=== PATIENT | male | born 1970 | race Caucasian/White ===

== ENCOUNTER → 2019-06-21 | Outpatient (CLI) | payer BC ==
[~2019-06-21] MED LIST: AZIT-21 PO; BENZ100C18 PO; CIPR-17 PO; CIPR-225 PO; CPR500T PO; CYCL10TA45 PO; FAMO20TA17 PO; HSCO125 SL; HYDR-757 PO; LOPE-134 PO; METR500T PO; NAPR550T PO; OMEP20CA12 PO; ONDAN4ODT PO; OXYC-12 PO; PANT40TA2 PO; PANT40TA3 PO; PNT40TEC PO; PRED10TA PO
--- NOTE | 2019-06-21 15:27 | Diagnostic Imaging Report ---
PROCEDURE: MRI lumbar spine. TECHNIQUE: Multiplanar, multisequence MRI of the lumbar spine was performed without contrast. INDICATION: Low back pain. Bilateral hip pain. COMPARISON: MRI lumbar spine on 03/16/2015. FINDINGS: Five lumbar type vertebral bodies are visualized with the last well-formed disc space designated L5-S1. No acute fracture or dislocation is seen in the lumbar spine. There is straightening of the lumbar spine. Vertebral heights and disc spaces are well-maintained. The bone marrow signal is normal. A hemangioma is seen in the L4 vertebral body. 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 The conus terminates at the L1-L2 level. No masses are seen associated with the conus or nerve roots of the cauda equina. No epidural collections are identified. Mild degenerative changes are seen in the lumbar spine with disc bulges, facet hypertrophy, and buckling of the ligamentum flavum. T12-L1: No significant spinal canal or foraminal stenosis. L1-L2: No significant spinal canal or foraminal stenosis. L2-L3: Facet hypertrophy and buckling of the ligamentum flavum results in mild spinal canal narrowing and no significant foraminal narrowing. L3-L4: Broad-based disc bulge, facet hypertrophy, and buckling of the ligamentum flavum results in mild spinal canal narrowing and mild bilateral foraminal narrowing. L4-L5: Broad-based disc bulge, facet hypertrophy, and buckling of the ligamentum flavum results in no significant spinal canal narrowing and mild bilateral foraminal narrowing. L5-S1: Broad-based disc bulge with central disc protrusion, facet hypertrophy, and buckling of results in no significant spinal canal narrowing and moderate right and no left foraminal stenosis. Paravertebral soft tissues are unremarkable. IMPRESSION: 1. No acute fracture or dislocation in the lumbar spine. 2. Mild degenerative changes in the lumbar spine, greatest at L5-S1. There is generalized narrowing of the spinal canal, likely congenital. Dictated by: Dictated on workstation # [id number]
== END ==
LOC: RAD 14:12
PROVIDERS: ATTEND Nurse Practitioner Community Health
DX: M48.061 Spinal stenosis, lumbar region without neurogenic claudication (principal); M47.817 Spondylosis without myelopathy or radiculopathy, lumbosacral region
CPT/HCPCS: 72148

== ENCOUNTER 2020-10-11 18:34 | Emergency (ER) | payer BC ==
[~2020-10-11] VITALS: Ht 180.3 cm; Wt 113.3 kg
[~2020-10-11 18:34] MED LIST changes: -PANT40TA3 PO; +PANT40TA52 PO
[2020-10-11 18:45] VITALS: BP 163/107
[2020-10-11] MEDS ORDERED: ORPHENADRINE 60 MG/2 ML (NORFLEX) AMP (ED ONLY) IM ONE (19:15)
[2020-10-11] MEDS ORDERED: KETOROLAC 60 MG/2 ML VIAL IM ONE (19:15)
--- NOTE | 2020-10-11 19:17 | ED Back Pain ---
General Chief Complaint: Back Problems Stated Complaint: LOWER BACK PAIN/FATIGUE Nursing Triage Note: Pt reports chronic back pain for ten years. Pt reports pain has worsened over the last month. Pt reports needing surgery. Pt reports having an epidural a month ago and a toradol shot yesterday. Nursing Sepsis Screen: No Definite Risk Source of Information: Patient Exam Limitations: No Limitations History of Present Illness Date Seen by Provider: Oct 11, 2020 Time Seen by Provider: 18:57 Initial Comments Patient presents ER by private conveyance with chief complaint he has been having back pain off and on for the past 10 years. He has a herniated disc has had MRIs for it. No recent trauma. No weakness or numbness. No falls or motor vehicle collisions. 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 2 days ago he went to the doctor and had a shot of Kenalog and Tor adol which did not help. Late August he had Dr. Rodriguez do a epidural injection with steroids which she says usually lasts for a year or 2 but this time it did not help. He says he felt a popping sensation when he was rolling out of tarp today. He does have a back brace and uses it. He is also using topical creams heat and ice. He has an appointment with a surgeon next week at [facility] to have his back operated on which he has been putting off for many years. He is on nabumetone. No loss of control of bowel and/or bladder. No saddle anesthesia. Allergies and Home Medications Allergies Coded Allergies: Penicillins (Verified Allergy, Severe, ANAPHYLAXIS, 10/07/16) codeine (Verified Adverse Reaction, Mild, NAUSEA, 10/07/16) Home Medications Ciprofloxacin HCl 500 Mg Tablet, 500 MG PO BID Prescribed by: JE GUY on 10/08/16 1444 Cyclobenzaprine HCl 10 Mg Tablet, 10 MG PO Q8H PRN for SPASMS Prescribed by: CHASITY MILLAN on 10/11/201918 Loperamide HCl 2 Mg Tablet, 2 MG PO BID PRN for DIARRHEA, (Reported) Pantoprazole Sodium 40 Mg Tablet.dr, 40 MG PO DAILY, (Reported) Prednisone 20 Mg Tab, 60 MG PO DAILY 3 tabs for 3 days then 2 tabs for 3 days then 1 tab for 3 days. Prescribed by: CHASITY MILLAN on 10/11/201918 Patient Home Medication List Home Medication List Reviewed: Yes Review of Systems Constitutional: No chills, No malaise EENTM: No ear discharge, No ear pain Respiratory: No cough, No short of breath Cardiovascular: No chest pain, No Hx of Intervention Gastrointestinal: No abdominal pain, No constipation, No diarrhea, No nausea, No vomiting Genitourinary: No discharge, No dysuria, No hematuria Musculoskeletal: No back pain, No joint pain All Other Systems Reviewed Negative Unless Noted: Yes Past Cbffjcv-Aazbfk-Pjffyb Hx Patient Social History Alcohol Use: Past History Recreational Drug Use: No Smoking Status: Current Everyday Smoker Type Used: Cigarettes Former Smoker, Quit: Oct 02, 2013 2nd Hand Smoke Exposure: No Recent Foreign Travel: No Contact w/Someone Who Travel: No Recent Infectious Disease Expo: No Recent Hopitalizations: No Immunizations Up To Date Tetanus Booster (TDap): More than 5yrs Seasonal Allergies Seasonal Allergies: No Past Medical History Surgeries: Yes (HERNIA, RIGHT WRIST SURGERY) Respiratory: Yes (COPD) COPD Cardiac: No Neurological: No Reproductive Disorders: No Sexually Transmitted Disease: No HIV/AIDS: No Gastrointestinal: Yes (EPIGASTRIC, BLACK TARRY STOOLS) Abdominal Hernia, Diverticulosis, Chronic Diarrhea, Ulcer Musculoskeletal: Yes (ARTHRITIS) Arthritis Endocrine: No Loss of Vision: Denies Hearing Impairment: Denies Cancer: No Psychosocial: No Integumentary: No Blood Disorders: No Adverse Reaction/Blood Tranf: No (N/A) Family Medical History Alcoholism 19 FATHER Cardiovascular disease 19 FATHER (chf) Coronary thrombosis 19 MOTHER Respiratory disorder 19 FATHER (emphysema ) Physical Exam Vital Signs Vital Signs - First Documented 10/11/20 18:45 Temp 37.0 Pulse 90 Resp 18 B/P (MAP) 163/107 (125) Pulse Ox 96 O2 Delivery Room Air Capillary Refill : Less Than 3 Seconds Height, Weight, BMI Height: 6'0.00" Weight: 256lbs. 7.0oz. [id number]; 34.00 BMI Method:Stated General Appearance: WD/WN, Mild Distress HEENT: PERRL/EOMI, Pharynx Normal, Moist Mucous Membranes Neck: Full Range of Motion, Normal Inspection Cardiovascular: Regular Rate, Rhythm, No Edema, Normal Peripheral Pulses Respiratory: Lungs Clear, Normal Breath Sounds, No Accessory Muscle Use, No Respiratory Distress Peripheral Pulses: 2+ Radial Pulses (R), 2+ Radial Pulses (L) Extremity: Normal Capillary Refill, Normal Inspection, Normal Range of Motion, No Pedal Edema Neurologic/Psychiatric: Alert, Oriented x3, No Motor/Sensory Deficits, Normal Mood/Affect Progress/Results/Core Measures Results/Orders My Orders Orders - CHASITY MILLAN Ketorolac Injection (Toradol Injection) (10/11/20 19:15) Orphenadrine Inj (Ed Only) (Norflex Inje (10/11/20 19:15) Vital Signs/I&O 10/11/20 18:45 Temp 37.0 Pulse 90 Resp 18 B/P (MAP) 163/107 (125) Pulse Ox 96 O2 Delivery Room Air Blood Pressure Mean: 125 Progress Progress Note : Time: 19:13 Progress Note Plan to put him off for a week encourage him to use his back brace, topicals Tylenol and NSAIDs. We will give him a shot of Toradol and Norflex tonight. We will put him out on cyclobenzaprine and encouraged him to make his follow-up appointment with the surgeon. Departure Impression Primary Impression: Herniated intervertebral disc of lumbar spine Additional Impression: Lumbago with sciatica Qualified Codes: M54.42 - Lumbago with sciatica, left side; M54.41 - Lumbago with sciatica, right side Disposition: 01 HOME, SELF-CARE Condition: Stable Departure-Patient Inst. Decision time for Depature: 19:14 Referrals: NO,LOCAL PHYSICIAN (PCP) Primary Care Physician BROOKE HOGAN (Family) Primary Care Physician Patient Instructions: Back Stretches on Floor, Herniated Disc Exercises, Herniated Disc (DC) Add. Discharge Instructions: Drink plenty of fluids. Dehydration makes back pain worse. Tylenol and your other medications as prescribed. Continue to use topical creams such as icy hot, Biofreeze etc. Heating pads can be helpful for the pain. Wear the back brace on the days that it helps. Cyclobenzaprine can be taken every 8 hours as necessary for muscle spasms in your back. It will cause drowsiness. Take the next week off and no heavy lifting or bending. Stay active and review the exercises in the handout. Return to the ER for worsening symptoms. Keep your follow-up appointment with the surgeon. Prednisone 3 tablets a day for 3 days. Then take prednisone 2 tablets a day for 3 days. Finally take 1 tablet of prednisone a day for 3 days. You may call and set up a consultation appointment with [facility] therapy to see if they can help manage your back pain. . All discharge instructions reviewed with patient and/or family. Voiced understanding. Scripts Prednisone (Prednisone) 20 Mg Tab 60 MG PO DAILY for 9 Days, #18 TAB 0 Refills 3 tabs for 3 days then 2 tabs for 3 days then 1 tab for 3 days. Prov: CHASITY MILLAN 10/11/20 Cyclobenzaprine HCl (Cyclobenzaprine HCl) 10 Mg Tablet 10 MG PO Q8H PRN for SPASMS, #20 TAB 0 Refills Prov: CHASITY MILLAN 10/11/20 Work/School Note: Work Release Form Date Seen in the Emergency Department: Oct 11, 2020 Return to Work: Oct 18, 2020 Restrictions: No Restrictions CHASITY MILLAN Oct 11, 2020 19:17
[2020-10-11] MEDS ORDERED: PRD20T PO (19:19)
[2020-10-11] MEDS ORDERED: CYCL10TA9 PO (19:19)
== END 2020-10-11 19:40 | disposition home or self-care (01) ==
LOC: EDUNIT# 18:34 → ER 18:35
DX: M51.26 Other intervertebral disc displacement, lumbar region (principal); M54.42 Lumbago with sciatica, left side; M54.41 Lumbago with sciatica, right side; J44.9 Chronic obstructive pulmonary disease, unspecified; F17.210 Nicotine dependence, cigarettes, uncomplicated; Z88.0 Allergy status to penicillin; Z88.5 Allergy status to narcotic agent; Z82.49 Family history of ischemic heart disease and other diseases of the circulatory system; Z79.52 Long term (current) use of systemic steroids
CPT/HCPCS: 99284

== ENCOUNTER 2023-03-28 19:04 | Emergency (ER) | payer BC, OTHER ==
[~2023-03-28] VITALS: Ht 180.3 cm; Wt 113.3 kg
[~2023-03-28 19:04] MED LIST changes: +CYCL10TA25 PO; +PRD20T PO
--- NOTE | 2023-03-28 19:29 | ED EENT ---
History of Present Illness General Chief Complaint: Dental Problems/Pain Stated Complaint: DENTAL PAIN/SWELLING Nursing Triage Note: left lower rear dental pain since 03/24/23 Source: patient History of Present Illness Date Seen by Provider: March 28, 2023 Time Seen by Provider: 19:18 Initial Comments PT ARRIVES VIA POV FROM HOME WITH /S.O. C/O INFECTED TOOTH--PAIN SINCE FRIDAY PT STATES THIS TOOTH IS CRACKED AND ROTTEN. 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 PT HAS NOT SEEN A DENTIST RECENTLY HE DOES GO TO A DENTIST IN [place], [place]--HAD 7 TEETH REMOVED LAST YEAR. HAS NOT FOLLOWED UP SINCE THEN. PT DOES NOT TAKE ANY MEDICATIONS STATES HE HAS COPD AND DIVERTICULITIS. PCP: DR. LEMUS AT [facility] Allergies and Home Medications Allergies Coded Allergies: Penicillins (Verified Allergy, Severe, ANAPHYLAXIS, 10/07/16) codeine (Verified Adverse Reaction, Mild, NAUSEA, 10/07/16) Patient Home Medication List Home Medication List Reviewed: Yes Clindamycin HCl (Clindamycin HCl) 300 Mg Capsule, 300 MG PO QID Prescribed by: IVAN SIEGEL on 03/28/232058 Ketorolac Tromethamine (Ketorolac Tromethamine) 10 Mg Tablet, 10 MG PO Q6H Prescribed by: IVAN SIEGEL on 03/28/232058 L. Acidophilus/Pectin, [place] (Acidophilus Capsule) 7.5 Mg (30 Million Cell)-100 Mg Capsule, 2 EACH PO QID Prescribed by: IVAN SIEGEL on 03/28/232058 Lidocaine HCl (Lidocaine HCl Viscous) 2 % Solution, 1-2 ML MM [id number] Prescribed by: IVAN SIEGEL on 03/28/232058 Discontinued Medications Ciprofloxacin HCl (Cipro) 500 Mg Tablet, 500 MG PO BID Discontinued Reason: No Longer Taking Prescribed by: JE GUY on 10/08/16 1444 Last Action: Discontinued Cyclobenzaprine HCl (Cyclobenzaprine HCl) 10 Mg Tablet, 10 MG PO Q8H PRN for SPASMS Discontinued Reason: No Longer Taking Prescribed by: CHASITY MILLAN on 10/11/201918 Last Action: Discontinued Loperamide HCl (Imodium A-D) 2 Mg Tablet, 2 MG PO BID PRN for DIARRHEA, (Reported) Discontinued Reason: No Longer Taking Entered as Reported by: MATT KEITH on 10/08/16832 Last Action: Discontinued Pantoprazole Sodium (Pantoprazole Sodium) 40 Mg Tablet.dr, 40 MG PO DAILY, (Reported) Discontinued Reason: No Longer Taking Entered as Reported by: MATT KEITH on 10/08/16832 Last Action: Discontinued Prednisone (Prednisone) 20 Mg Tab, 60 MG PO DAILY Discontinued Reason: No Longer Taking Prescribed by: CHASITY MILLAN on 10/11/201918 Last Action: Discontinued Review of Systems Review of Systems Constitutional: see HPI, chills, fever Eyes: No Symptoms Reported Ears: No Symptoms Reported Nose: no symptoms reported Mouth: see HPI Throat: no symptoms reported Respiratory: no symptoms reported Cardiovascular: no symptoms reported Neurological: No Symptoms Reported Past Kdeguri-Idifvf-Ruyfot Hx Patient Social History Tobacco Use?: Yes Tobacco type used: Cigarettes Smoking Status: Current Everyday Smoker Substance use?: No Alcohol Use?: No Pt feels they are or have been: No Immunizations Up To Date Tetanus Booster (TDap): More than 5yrs First/Initial COVID19 Vaccinat: x3 Seasonal Allergies Seasonal Allergies: No Past Medical History Surgery/Hospitalization HX: copd, diverticulitis wrist, hernia, vasectomy, dental extraction Surgeries: Yes (HERNIA, RIGHT WRIST SURGERY) Abdominal, Orthopedic, Vasectomy Respiratory: Yes (COPD) COPD Cardiac: No Neurological: No Reproductive Disorders: No Sexually Transmitted Disease: No HIV/AIDS: No Gastrointestinal: Yes (EPIGASTRIC, BLACK TARRY STOOLS) Abdominal Hernia, Diverticulosis, Chronic Diarrhea, Ulcer Musculoskeletal: Yes (ARTHRITIS) Arthritis Endocrine: No HEENT: Yes (POOR DENTITION) Loss of Vision: Denies Hearing Impairment: Denies Cancer: No Psychosocial: No Integumentary: No Blood Disorders: No Adverse Reaction/Blood Tranf: No (N/A) Family Medical History Alcoholism 19 FATHER Cardiovascular disease 19 FATHER (chf) Coronary thrombosis 19 MOTHER Respiratory disorder 19 FATHER (emphysema ) Physical Exam Vital Signs Vital Signs - First Documented 03/28/23 19:09 Temp 36.6 Pulse 83 Resp 16 B/P (MAP) 142/91 (108) Pulse Ox 97 O2 Delivery Room Air Height, Weight, BMI Height: 6'0.00" Weight: 256lbs. 7.0oz. [id number]; 34.00 BMI Method:Stated General Appearance: WD/WN, no apparent distress, other (REEKS OF CIGARETTES) Eyes: bilateral eye normal inspection Mouth/Throat: other (EXTENSIVE DENTAL DECAY, POOR ORAL HYGIENE. LEFT LOWER MOLAR/ PREMOLAR AREA WITH EXTENSIVE CARIES, AND ADJACENT GUM SWELLING AND ERYTHEMA. MODERATE SWELING TO LEFT MANDIBLE / SUBMANDIBULAR AREA. ) Neck: lymphadenopathy (L) Cardiovascular: regular rate, rhythm Respiratory: normal breath sounds Neurologic/Psychiatric: umbrella tipper II-XII nml as tested, no motor/sensory deficits, alert, oriented x 3, other (SOMEWHAT HOSTILE AND ARGUMENTATIVE.) Skin: normal color, warm/dry, tattoos/piercings (EXTENSIVE TATTOOS) Progress/Results/Core Measures Results/Orders Lab Results Laboratory Tests Test 03/28/23 19:30 Range/Units White Blood Count 9.9 4.3-11.0 10^3/uL Red Blood Count 4.93 4.30-5.52 10^6/uL Hemoglobin 15.6 13.3-17.7 g/dL Hematocrit 45 40-54 % Mean Corpuscular Volume 92 80-99 fL Mean Corpuscular Hemoglobin 32 25-34 pg Mean Corpuscular Hemoglobin Concent 34 32-36 g/dL Red Cell Distribution Width 13.0 10.0-14.5 % Platelet Count 215 130-400 10^3/uL Mean Platelet Volume 11.5 9.0-12.2 fL Immature Granulocyte % (Auto) 0 % Neutrophils (%) (Auto) 51 42-75 % Lymphocytes (%) (Auto) 36 12-44 % Monocytes (%) (Auto) 8 0-12 % Eosinophils (%) (Auto) 5 0-10 % Basophils (%) (Auto) 0 0-10 % Neutrophils # (Auto) 5.0 1.8-7.8 10^3/uL Lymphocytes # (Auto) 3.6 1.0-4.0 10^3/uL Monocytes # (Auto) 0.8 0.0-1.0 10^3/uL Eosinophils # (Auto) 0.5 H 0.0-0.3 10^3/uL Basophils # (Auto) 0.0 0.0-0.1 10^3/uL Immature Granulocyte # (Auto) 0.0 0.0-0.1 10^3/uL Erythrocyte Sedimentation Rate 39 H 0-30 MM/HR Prothrombin Time 12.8 12.2-14.7 SEC INR Comment 0.9 0.8-1.4 Activated Partial Thromboplast Time 29 24-35 SEC Sodium Level 142 135-145 MMOL/L Potassium Level 3.5 L 3.6-5.0 MMOL/L Chloride Level 103 98-107 MMOL/L Carbon Dioxide Level 23 21-32 MMOL/L Anion Gap 16 H 5-14 MMOL/L Blood Urea Nitrogen 10 7-18 MG/DL Creatinine 1.28 0.60-1.30 MG/DL Estimat Glomerular Filtration Rate 68 BUN/Creatinine Ratio 8 Glucose Level 86 70-105 MG/DL Calcium Level 9.4 8.5-10.1 MG/DL Corrected Calcium 9.2 8.5-10.1 MG/DL Total Bilirubin 1.2 H 0.1-1.0 MG/DL Aspartate Amino Transf (AST/SGOT) 19 5-34 U/L Alanine Aminotransferase (ALT/SGPT) 20 0-55 U/L Alkaline Phosphatase 77 40-136 U/L C-Reactive Protein High Sensitivity 1.81 H 0.00-0.50 MG/DL Total Protein 7.1 6.4-8.2 GM/DL Albumin 4.3 3.2-4.5 GM/DL My Orders Orders - IVAN SIEGEL DO Ed Iv/Invasive Line Start (03/28/23 19:21) Ct Maxillofacial Wo (03/28/23 19:21) Cbc With Automated Diff (03/28/23 19:21) Comprehensive Metabolic Panel (03/28/23 19:21) Hs C Reactive Protein (03/28/23 19:21) Protime With Inr (03/28/23 19:21) Partial Thromboplastin Time (03/28/23 19:21) Erythrocyte Sedimentation Rate (03/28/23 19:21) Ed Iv/Invasive Line Start (03/28/23 19:21) Lactated Ringers (Lr 1000 Ml Iv Solution (03/28/23 19:30) Clindamycin 900 Mg/50 Ml Ivpb (Cleocin P (03/28/23 19:30) Ketorolac Injection (Toradol Injection) (03/28/23 19:30) Rx-Clindamycin Capsule (Rx-Cleocin Capsu (03/28/23 21:00) Lidocaine 2% Viscous 15 Ml (Xylocaine Vi (03/28/23 21:00) Medications Given in ED Current Medications Medications Dose Ordered Sig/Chaz Route Start Time Stop Time Status Last Admin Dose Admin Clindamycin Phosphate/Dextrose 50 ml @ 100 mls/hr ONCE ONCE IV 03/28/23 19:30 03/28/23 19:59 DC 03/28/23 19:43 100 MLS/HR Ketorolac Tromethamine 30 mg ONCE ONCE IVP 03/28/23 19:30 03/28/23 19:31 DC 03/28/23 19:43 30 MG Lactated Ringer's 1,000 ml @ 0 mls/hr Q0M ONCE IV 03/28/23 19:30 03/28/23 19:31 DC 03/28/23 19:43 1,000 MLS/HR Lidocaine HCl 5 ml ONCE ONCE MM 03/28/23 21:00 03/28/23 21:01 DC 03/28/23 21:10 5 ML Vital Signs/I&O 03/28/23 03/28/23 19:09 21:12 Temp 36.6 Pulse 83 64 Resp 16 16 B/P (MAP) 142/91 (108) 143/97 Pulse Ox 97 97 O2 Delivery Room Air Room Air Blood Pressure Mean: 108 Progress Progress Note : Progress Note GIVEN: -IV FLUIDS -TORADOL -CLINDAMYCIN LABS UNREMARKABLE, WITH NORMAL WBC. CT SCAN DOES NOT SHOW ANY DRAINABLE ABSCESS. PT IS AFEBRILE, AND VITALS ARE STABLE OFFERED ADMIT FOR IV ANTIBIOTICS AND PT ADAMANTLY REFUSES. DISCUSSED TEST RESULTS, ANTICIPATED COURSE, SYMPTOMATIC TREATMENT, MEDICATIONS, NEED FOR FOLLOW UP WITH DENTIST AND RETURN PRECAUTIONS. Diagnostic Imaging Comments CT MAXILLOFACIALS--PER RADIOLOGIST REPORT AT 2004 COMPARISON: None available. FINDINGS: Moderate intracranial atrophy is partially visualized. No intracranial midline shift or hydrocephalus. The orbits are unremarkable. The parapharyngeal fat is symmetric and well-maintained. The salivary glands are unremarkable. Subcutaneous fat stranding is noted within the submental region, left greater than right, extending up the left aspect of the chin. Thickening of the left platysma. No focal fluid collection. The patient is partially edentulous. No destructive osseous process. No focal fluid collection. Minimal mucosal thickening within scattered ethmoid air cells and the bilateral maxillary sinuses. No air-fluid level within the paranasal sinuses. The lamina papyracea are intact. No temporomandibular joint dislocation. Rightward nasal septal deviation with prominent rightward nasal septal spur. Katya bullosa of the bilateral middle turbinates. No acute facial fracture. Visualized cervical spine is unremarkable. IMPRESSION: Fat stranding within the left face and inferior chin region as described above. This may be on the basis of cellulitis or contusion. No discrete focal fluid collection or osseous destruction. Moderate intracranial atrophy. Reviewed: Reviewed by Me Departure Impression Primary Impression: DENTAL ABSCESS WITH FACIAL CELLULITIS Disposition: HOME, SELF-CARE Condition: Stable Departure-Patient Inst. Decision time for Depature: 20:15 Referrals: JUVE LEMUS DO (PCP/Family) Primary Care Physician Patient Instructions: Tooth Abscess (DC) Add. Discharge Instructions: FOLLOW UP WITH DENTIST NEXT WEEK RETURN TO ER IF SYMPTOMS WORSEN All discharge instructions reviewed with patient and/or family. Voiced understanding. Scripts L. Acidophilus/Pectin, [place] (Acidophilus Capsule) 7.5 Mg (30 Million Cell)-100 Mg Capsule 2 EACH PO QID, #40 CAP Prov: IVAN SIEGEL DO 03/28/23 Clindamycin HCl (Clindamycin HCl) 300 Mg Capsule 300 MG PO QID for 10 Days, #40 CAP Prov: IVAN SIEGEL DO 03/28/23 Ketorolac Tromethamine (Ketorolac Tromethamine) 10 Mg Tablet 10 MG PO Q6H for Pain, #15 TAB Prov: IVAN SIEGEL DO 03/28/23 Lidocaine HCl (Lidocaine HCl Viscous) 2 % Solution 1-2 ML MM [id number], #120 ML Prov: IVAN SIEGEL DO 03/28/23 IVAN SIEGEL DO March 28, 2023 19:29
[2023-03-28] MEDS ORDERED: LACTATED RINGERS 1,000 ML IV ONE (19:30)
[2023-03-28] MEDS ORDERED: KETOROLAC 30 MG/ML VIAL IVP ONE (19:30)
[2023-03-28] MEDS ORDERED: CLINDAMYCIN 900 MG/50 ML IVPB 50 ML IV ONE (19:30)
[2023-03-28 19:37] LABS: BASOPHILS % (AUTO) 0 % (0-10); EOSINOPHILS # (AUTO) 0.5 10^3/uL (0.0-0.3); EOSINOPHILS % (AUTO) 5 % (0-10); HEMATOCRIT 45 % (40-54); HEMOGLOBIN 15.6 g/dL (13.3-17.7); LYMPHOCYTES # (AUTO) 3.6 10^3/uL (1.0-4.0); LYMPHOCYTES % (AUTO) 36 % (12-44); MEAN CORPUSCULAR HEMOGLOBIN 32 pg (25-34); MEAN CORPUSCULAR HGB CONC 34 g/dL (32-36); MEAN CORPUSCULAR VOLUME 92 fL (80-99); MEAN PLATELET VOLUME 11.5 fL (9.0-12.2); MONOCYTES # (AUTO) 0.8 10^3/uL (0.0-1.0); MONOCYTES % (AUTO) 8 % (0-12); NEUTROPHILS % (AUTO) 51 % (42-75); PLATELET COUNT 215 10^3/uL (130-400); WHITE BLOOD COUNT 9.9 10^3/uL (4.3-11.0)
[2023-03-28 19:51] LABS: INR 0.9 (0.8-1.4); PROTHROMBIN TIME PATIENT 12.8 SEC (12.2-14.7)
[2023-03-28 19:55] LABS: ALBUMIN 4.3 GM/DL (3.2-4.5); BILIRUBIN,TOTAL 1.2 MG/DL (0.1-1.0); CALCIUM 9.4 MG/DL (8.5-10.1); CREATININE SERUM 1.28 MG/DL (0.60-1.30); POTASSIUM 3.5 MMOL/L (3.6-5.0); TOTAL PROTEIN 7.1 GM/DL (6.4-8.2)
[2023-03-28 19:56] LABS: ERYTHROCYTE SEDIMENTATION RATE 39 MM/HR (0-30)
--- NOTE | 2023-03-28 20:16 | Diagnostic Imaging Report ---
PROCEDURE: CT maxillofacial without contrast. TECHNIQUE: Multiple contiguous axial images were obtained through the facial bones without the use of intravenous contrast. Auto Exposure Controls were utilized during the CT exam to meet ALARA standards for radiation dose reduction. INDICATION: Facial trauma, pain COMPARISON: None available. FINDINGS: Moderate intracranial atrophy is partially visualized. No intracranial midline shift or hydrocephalus. The orbits are unremarkable. The parapharyngeal fat is symmetric and well-maintained. The salivary glands are unremarkable. Subcutaneous fat stranding is noted within the submental region, left greater than right, extending up the left aspect of the chin. Thickening of the left platysma. No focal fluid collection. The patient is partially edentulous. No destructive osseous process. No focal fluid collection. Minimal mucosal thickening within scattered ethmoid air cells and the bilateral maxillary sinuses. No air-fluid level within the paranasal sinuses. The lamina papyracea are intact. No temporomandibular joint dislocation. Rightward nasal septal deviation with prominent rightward nasal septal spur. Katya bullosa of the bilateral middle turbinates. No acute facial fracture. Visualized cervical spine is unremarkable. IMPRESSION: Fat stranding within the left face and inferior chin region as described above. This may be on the basis of cellulitis or contusion. No discrete focal fluid collection or osseous destruction. Moderate intracranial atrophy. Dictated by: Dictated on workstation # [id number]
[2023-03-28] MEDS ORDERED: LIDO15SO3 MM (20:59)
[2023-03-28] MEDS ORDERED: CLIN-144 PO (20:59)
[2023-03-28] MEDS ORDERED: L. A1CAP11 PO (20:59)
[2023-03-28] MEDS ORDERED: KETO10TA PO (20:59)
[2023-03-28] MEDS ORDERED: LIDOCAINE 2% VISCOUS 15 ML UDC MM ONE (21:00)
[2023-03-28] MEDS ORDERED: RX-CLINDAMYCIN 150 MG (CLEOCIN) CAP PPK#4 PO STA (21:00)
[2023-03-28 21:12] VITALS: BP 143/97
== END 2023-03-28 21:12 | disposition home or self-care (01) ==
LOC: EDUNIT# 19:04 → ER 19:06
DX: K04.7 Periapical abscess without sinus (principal); L03.211 Cellulitis of face; F17.210 Nicotine dependence, cigarettes, uncomplicated; Z28.311 Partially vaccinated for COVID-19; Z88.0 Allergy status to penicillin
CPT/HCPCS: 36415; 70486; 80053; 85025; 85610; 85652; 85730; 86141

== ENCOUNTER 2023-09-14 10:18 | Emergency (ER) | payer OTHER ==
[~2023-09-14] VITALS: Ht 182.8 cm; Wt 108.8 kg
[~2023-09-14 10:18] MED LIST changes: +CLIN-144 PO; +KETO10TA PO; +L. A1CAP11 PO; +LIDO15SO3 MM
[2023-09-14] MEDS ORDERED: COLCHICINE 0.6 MG TABLET PO ONE ×2 (10:45→12:00)
--- NOTE | 2023-09-14 10:58 | Diagnostic Imaging Report ---
INDICATION: Left ankle pain, starting yesterday with pain and swelling. No known injury. TECHNIQUE: Three views of the left ankle CORRELATION STUDY: None FINDINGS: The bony alignment is anatomic. The talar dome is intact. The ankle mortise is maintained. Very small plantar calcaneal spur. There is no acute fracture or dislocation. Soft tissues are unremarkable. IMPRESSION: Negative for acute bony abnormality of the ankle. Dictated by: Dictated on workstation # [id number]
[2023-09-14 11:12] LABS: BASOPHILS # (AUTO) 0.1 10^3/uL (0.0-0.1); BASOPHILS % (AUTO) 0 % (0-10); EOSINOPHILS # (AUTO) 0.6 10^3/uL (0.0-0.3); EOSINOPHILS % (AUTO) 4 % (0-10); HEMATOCRIT 46 % (40-54); HEMOGLOBIN 15.9 g/dL (13.3-17.7); LYMPHOCYTES # (AUTO) 3.1 10^3/uL (1.0-4.0); LYMPHOCYTES % (AUTO) 21 % (12-44); MEAN CORPUSCULAR HEMOGLOBIN 32 pg (25-34); MEAN CORPUSCULAR HGB CONC 35 g/dL (32-36); MEAN CORPUSCULAR VOLUME 93 fL (80-99); MEAN PLATELET VOLUME 11.6 fL (9.0-12.2); MONOCYTES # (AUTO) 0.9 10^3/uL (0.0-1.0); MONOCYTES % (AUTO) 6 % (0-12); NEUTROPHILS # (AUTO) 9.7 10^3/uL (1.8-7.8); NEUTROPHILS % (AUTO) 68 % (42-75); PLATELET COUNT 196 10^3/uL (130-400); WHITE BLOOD COUNT 14.3 10^3/uL (4.3-11.0)
[2023-09-14 11:22] LABS: POTASSIUM 3.9 MMOL/L (3.6-5.0)
[2023-09-14 11:23] LABS: CALCIUM 9.1 MG/DL (8.5-10.1)
[2023-09-14 11:28] LABS: CREATININE SERUM 1.06 MG/DL (0.60-1.30)
--- NOTE | 2023-09-14 11:28 | ED Lower Extremity ---
General Chief Complaint: Lower Extremity Stated Complaint: LEFT ANKLE PAIN Nursing Triage Note: PT AMB TO RM 5 WITH COMPLAINT OF LEFT ANKLE PAIN. STATES STARTED YESTERDAY WITH PAIN AND SWELLING. DENIES INJURY. Source: patient, family Exam Limitations: no limitations History of Present Illness Date Seen by Provider: Sep 14, 2023 Time Seen by Provider: 10:30 Initial Comments This 53-year-old gentleman presents to the emergency room by private vehicle with concerns about 2 days of pain and swelling in the left ankle. He does not recall any injury or strenuous activity. 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 He also gets up and down from the trailer. However, he cannot recall any activity that should have caused him pain and swelling. He denies any chronic injury. He only recalls minor injuries as a youth such as typical ankle sprains. He took ibuprofen 600 mg this morning and tried IcyHot. He had some subtle relief from these treatments. He denies any fever or chills. He has no known history of gout. His primary care provider is Dr. Lemus at [facility]. Allergies and Home Medications Allergies Coded Allergies: Penicillins (Verified Allergy, Severe, ANAPHYLAXIS, 10/07/16) codeine (Verified Adverse Reaction, Mild, NAUSEA, 10/07/16) Patient Home Medication List Home Medication List Reviewed: Yes Clindamycin HCl (Clindamycin HCl) 300 Mg Capsule, 300 MG PO QID Prescribed by: IVAN SIEGEL on 03/28/232058 Indomethacin (Indomethacin) 25 Mg Capsule, 25 MG PO TID Prescribed by: DENZEL SORIANO on 09/14/23 1246 Ketorolac Tromethamine (Ketorolac Tromethamine) 10 Mg Tablet, 10 MG PO Q6H Prescribed by: IVAN SIEGEL on 03/28/232058 L. Acidophilus/Pectin, Wake (Acidophilus Capsule) 7.5 Mg (30 Million Cell)-100 Mg Capsule, 2 EACH PO QID Prescribed by: IVAN SIEGEL on 03/28/232058 Lidocaine HCl (Lidocaine HCl Viscous) 2 % Solution, 1-2 ML MM [id number] Prescribed by: IVAN SIEGEL on 03/28/232058 Review of Systems Constitutional: no symptoms reported EENTM: no symptoms reported Respiratory: no symptoms reported Cardiovascular: no symptoms reported Gastrointestinal: no symptoms reported Musculoskeletal: see HPI Skin: no symptoms reported Psychiatric/Neurological: No Symptoms Reported Past Aldeqjd-Kzqzdl-Bevsvx Hx Patient Social History Tobacco Use?: Yes Tobacco type used: Cigarettes Smoking Status: Current Everyday Smoker Use of E-Cig and/or Vaping dev: No Substance use?: No Alcohol Use?: No Pt feels they are or have been: No Immunizations Up To Date Tetanus Booster (TDap): More than 5yrs First/Initial COVID19 Vaccinat: x3 Second COVID19 Vaccination Rober: x3 Third COVID19 Vaccination Date: x3 Seasonal Allergies Seasonal Allergies: No Past Medical History Surgery/Hospitalization HX: copd, diverticulitis wrist, hernia, vasectomy, dental extraction Surgeries: Yes (HERNIA, RIGHT WRIST SURGERY) Abdominal (Hernia), Orthopedic (Right wrist), Vasectomy Respiratory: Yes (COPD) COPD Cardiac: No Neurological: No Reproductive Disorders: No Sexually Transmitted Disease: No HIV/AIDS: No Gastrointestinal: Yes (EPIGASTRIC, BLACK TARRY STOOLS) Abdominal Hernia, Diverticulosis, Chronic Diarrhea, Ulcer Musculoskeletal: Yes (ARTHRITIS) Arthritis Endocrine: No HEENT: Yes (POOR DENTITION) Loss of Vision: Denies Hearing Impairment: Denies Cancer: No Psychosocial: No Integumentary: No Blood Disorders: No Adverse Reaction/Blood Tranf: No (N/A) Family Medical History Alcoholism 19 FATHER Cardiovascular disease 19 FATHER (chf) Coronary thrombosis 19 MOTHER Respiratory disorder 19 FATHER (emphysema ) Physical Exam Vital Signs Vital Signs - First Documented 09/14/23 10:26 Pulse 93 Resp 16 B/P (MAP) 157/108 (124) Pulse Ox 96 O2 Delivery Room Air Capillary Refill : Less Than 3 Seconds Height, Weight, BMI Height: 6'0.00" Weight: 256lbs. 7.0oz. 116.122921od; 32.00 BMI Method:Stated General Appearance: WD/WN, mild distress, obese HEENT: normal ENT inspection Cardiovascular: regular rate, rhythm, no edema, no murmur Respiratory: lungs clear, normal breath sounds, no respiratory distress Ankles: left ankle limited range of motion, left ankle pain, left ankle swelling, left ankle other (TTP of the left ankle joint greater laterally. Significant pain with active or passive ROM) Feet: left foot non-tender, left foot normal inspection, left foot normal range of motion, left foot no evidence of injury, left foot other (Normal pedal pulse, sensation and capilary refill in the toes) Neurologic/Psychiatric: no motor/sensory deficits, alert, normal mood/affect, oriented x 3 Skin: normal color, warm/dry Progress/Results/Core Measures Results/Orders Lab Results Laboratory Tests Test 09/14/23 11:07 Range/Units White Blood Count 14.3 H 4.3-11.0 10^3/uL Red Blood Count 4.90 4.30-5.52 10^6/uL Hemoglobin 15.9 13.3-17.7 g/dL Hematocrit 46 40-54 % Mean Corpuscular Volume 93 80-99 fL Mean Corpuscular Hemoglobin 32 25-34 pg Mean Corpuscular Hemoglobin Concent 35 32-36 g/dL Red Cell Distribution Width 13.0 10.0-14.5 % Platelet Count 196 130-400 10^3/uL Mean Platelet Volume 11.6 9.0-12.2 fL Immature Granulocyte % (Auto) 0 % Neutrophils (%) (Auto) 68 42-75 % Lymphocytes (%) (Auto) 21 12-44 % Monocytes (%) (Auto) 6 0-12 % Eosinophils (%) (Auto) 4 0-10 % Basophils (%) (Auto) 0 0-10 % Neutrophils # (Auto) 9.7 H 1.8-7.8 10^3/uL Lymphocytes # (Auto) 3.1 1.0-4.0 10^3/uL Monocytes # (Auto) 0.9 0.0-1.0 10^3/uL Eosinophils # (Auto) 0.6 H 0.0-0.3 10^3/uL Basophils # (Auto) 0.1 0.0-0.1 10^3/uL Immature Granulocyte # (Auto) 0.1 0.0-0.1 10^3/uL Neutrophils % (Manual) 74 % Lymphocytes % (Manual) 21 % Monocytes % (Manual) 3 % Eosinophils % (Manual) 2 % Blood Morphology Comment NORMAL Erythrocyte Sedimentation Rate 6 0-30 MM/HR Sodium Level 141 135-145 MMOL/L Potassium Level 3.9 3.6-5.0 MMOL/L Chloride Level 109 H 98-107 MMOL/L Carbon Dioxide Level 22 21-32 MMOL/L Anion Gap 10 5-14 MMOL/L Blood Urea Nitrogen 12 7-18 MG/DL Creatinine 1.06 0.60-1.30 MG/DL Estimat Glomerular Filtration Rate 85 BUN/Creatinine Ratio 11 Glucose Level 94 70-105 MG/DL Uric Acid 5.2 2.6-7.2 MG/DL Calcium Level 9.1 8.5-10.1 MG/DL C-Reactive Protein High Sensitivity 0.38 0.00-0.50 MG/DL My Orders Orders - DENZEL PETERS MD Colchicine Tablet (Colchicine Tablet) (09/14/23 10:45) Ankle, Left, 3 Views (09/14/23 10:41) Basic Metabolic Panel (09/14/23 10:41) Cbc And Automated Diff (09/14/23 10:41) Hs C Reactive Protein (09/14/23 10:41) Erythrocyte Sedimentation Rate (09/14/23 10:41) Uric Acid (09/14/23 10:41) Manual Differential (09/14/23 11:07) Indomethacin Capsule (Indomethacin Capsu (09/14/23 12:00) Colchicine Tablet (Colchicine Tablet) (09/14/23 12:00) Medications Given in ED Current Medications Medications Dose Ordered Sig/Chaz Route Start Time Stop Time Status Last Admin Dose Admin Colchicine 0.6 mg ONCE ONCE PO 09/14/23 12:00 09/14/23 12:01 DC 09/14/23 12:07 0.6 MG Colchicine 1.2 mg ONCE ONCE PO 09/14/23 10:45 09/14/23 10:46 DC 09/14/23 11:06 1.2 MG Indomethacin 50 mg ONCE ONCE PO 09/14/23 12:00 09/14/23 12:01 DC 09/14/23 12:07 50 MG Vital Signs/I&O 09/14/23 10:26 Pulse 93 Resp 16 B/P (MAP) 157/108 (124) Pulse Ox 96 O2 Delivery Room Air Blood Pressure Mean: 124 Progress Progress Note #1: Time: 11:30 Progress Note Based on history and exam, gout is suspected. Labs have been ordered and colchicine empirically administered. Ankle x-rays were reviewed by me with no acute abnormalities appreciated. Radiologist's report was also reviewed as noted below. Progress Note #2: Time: 11:51 Progress Note It has been approximately 1 hour since the first colchicine dose of 1.2 mg. A second dose of 0.6 mg will be given now along with indomethacin. Labs have been reviewed in their entirety and interpreted by me. CBC was notable for a WBC count of 14.3. CBC was otherwise unremarkable. BMP was normal with excellent renal function noted. Uric acid was normal at 5.2. CRP was normal at 0.38. ESR was normal at 6. It seems very unlikely that patient has a septic arthritis with no indicated source of infection, no fever, and no elevation of CRP or ESR. Based on history and exam, I believe gout is the most likely cause of his symptoms. We will reassess in 30 to 60 minutes after receiving the above me dications and work on a discharge plan from there. Progress Note #3: Time: 12:47 Progress Note Patient had significant improvement in pain after the second colchicine dose and the indomethacin. He was able to ambulate with decreased pain. See discharge instructions for further discussion. Diagnostic Imaging Diagonstic Imaging: Xray Plain Films/CT/US/NM/MRI: ankle Comments NAME: MONIKA LARA Krystle MED REC#: [id number] PT STATUS: REG ER : 1970 PHYSICIAN: DENZEL PETERS MD ADMIT DATE: 09/14/23/ER Draft Date of Exam:09/14/23 ANKLE, LEFT, 3 VIEWS INDICATION: Left ankle pain, starting yesterday with pain and swelling. No known injury. TECHNIQUE: Three views of the left ankle CORRELATION STUDY: None FINDINGS: The bony alignment is anatomic. The talar dome is intact. The ankle mortise is maintained. Very small plantar calcaneal spur. There is no acute fracture or dislocation. Soft tissues are unremarkable. IMPRESSION: Negative for acute bony abnormality of the ankle. Dictated on workstation # [id number] Dict: 09/14/23 1057 Trans: 09/14/23 1057 DO [id number] Interpreted by: BEATRIZ QUINN DO Departure Impression Primary Impression: Left ankle pain Qualified Codes: M25.572 - Pain in left ankle and joints of left foot Additional Impression: Left ankle swelling Disposition: 01 HOME, SELF-CARE Condition: Improved Departure-Patient Inst. Decision time for Depature: 12:43 Referrals: JUVE LEMUS DO (PCP/Family) Primary Care Physician Patient Instructions: Gout ED, Lifestyle Changes to Manage Gout Add. Discharge Instructions: Your pain and swelling is most likely due to gout. Use indomethacin as prescribed to treat the pain. Start by using 2 tablets (totaling 50 mg) 3 times daily for the first 3 days. Then use 1 tablet (25 mg) 3 times daily thereafter. Make the lifestyle changes and dietary changes recommended on the attached handout to reduce risk of further gout attacks. Follow-up with your primary care provider soon as possible to discuss further t reatment and medication to help prevent future future attacks. Return to care if you have worsening symptoms despite following these instructions, especially if you develop escalating pain not responsive to indomethacin or fevers. All discharge instructions reviewed with patient and/or family. Voiced understanding. Scripts Indomethacin (Indomethacin) 25 Mg Capsule 25 MG PO TID, #30 CAP Take 2 tablets (total of 50 mg) 3 times daily for the first 3 days. Then take 1 tablet 3 times daily. Prov: DENZEL PETERS MD 09/14/23 Copy Copies To 1: JUVE LEMUS JOSHUA T MD Sep 14, 2023 11:28
[2023-09-14 11:30] LABS: URIC ACID 5.2 MG/DL (2.6-7.2)
[2023-09-14 11:35] LABS: EOSINOPHILS % (MANUAL) 2 %; LYMPHOCYTES % (MANUAL) 21 %; MONOCYTES % (MANUAL) 3 %; NEUTROPHILS % (MANUAL) 74 %
[2023-09-14 11:36] LABS: RBC MORPH NORMAL
[2023-09-14 11:37] LABS: ERYTHROCYTE SEDIMENTATION RATE 6 MM/HR (0-30)
[2023-09-14] MEDS ORDERED: INDOMETHACIN 25 MG CAPSULE PO ONE (12:00)
[2023-09-14] MEDS ORDERED: INDO25CA99 PO (12:46)
[2023-09-14 12:52] VITALS: BP 150/96
== END 2023-09-14 12:52 | disposition home or self-care (01) ==
LOC: EDUNIT# 10:18 → ER 10:21
DX: M25.572 Pain in left ankle and joints of left foot (principal); M25.472 Effusion, left ankle; E66.9 Obesity, unspecified; F17.210 Nicotine dependence, cigarettes, uncomplicated; Z68.32 Body mass index [BMI] 32.0-32.9, adult
CPT/HCPCS: 36415; 73610; 80048; 84550; 85007; 85027; 85652; 86141